=== PATIENT | male | born 1960 | race Caucasian/White ===

== ENCOUNTER 2016-10-07 07:12 | Emergency (ER) | payer BC, OTHER ==
[2016-10-07 07:17] VITALS: RESP 16; TEMP 97.3
[2016-10-07] MEDS ORDERED: NS 1,000 ML IV ONE (07:24)
[2016-10-07] MEDS ORDERED: ONDANSETRON 4 MG/2 ML VIAL IVP ONE (07:24)
--- NOTE | 2016-10-07 07:40 | EDPHY ---
HPI/HX/ROS/PE/MDM Narrative: CHIEF COMPLAINT: "woke up dizzy to the point of nausea" HPI: The patient is a 55 y/o male complaining of dizziness and nausea upon waking this morning in the last couple hours. His dizziness is aggravated by turning his head and alleviated by sitting still and described as "room- spinning." He has vomited bile a few times due to this. He felt normal yesterday. He has not experienced these symptoms previously but does note he's had a previous ear infection as an adult. No history of vertigo. He denies recent trauma or illness, earache, vision changes, headache, weakness, paresthesias, or fever. No pertinent chronic medical history. REVIEW OF SYSTEMS: Aside from elements discussed in the HPI, a comprehensive 10-point review of systems was reviewed and is negative. 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 PHYSICAL EXAM: General:Patient is alert, in no acute distress. ENT:Eyes are normal to inspection. ENT inspection normal. Right TM obscured by cerumen. Left TM normal. Neck: Normal inspection. Full range of motion. Respiratory:No respiratory distress. Breath sounds normal bilaterally. Cardiovascular: Regular rate and rhythm. Strong peripheral pulses. Normal cap refill. Abdomen:The abdomen is nontender to palpation. There are no peritoneal signs. There are normal bowel sounds. Back: Normal to inspection. No tenderness to palpation. Skin: Normal color. No rash. Warm and dry. Extremities: Normal appearance. Full range of motion. Neuro: Oriented x3. Normal motor function. Normal sensory function. No nystagmus. No pronator drift. Normal [id number]. Normal [id number]. ED Course: This is a healthy 55 y/o male who presents with room-spinning dizziness upon waking. He has associated nausea and vomiting, but denies other complaints. His neuro exam is normal and no nystagmus noted. IV established. 4mg IV Zofran and 50mg PO Meclizine administered. Plan to reassess over the next hour. Nausea improved with Zofran and he has not vomited since administration. 0841: Reassessed patient. He states he is about 50% better. Neuro exam remains normal. He feels ready to go home. He will be discharged with scripts for Meclizine and Zofran and referred to PCP and neurologist if needed. Return precautions given. He is comfortable with this plan. MDM: This patient presents with acute vertigo. His cerebellar exam is normal. He states that he has had an ear infection in the past, and his right ear is impacted by cerumen, however, he has no ear pain, loss of hearing, fever to suggest infection, and his symptoms are acute in onset, so I think otitis media is very unlikely. His signs and symptoms seem most consistent with labyrinthitis. I will treat him with meclizine and zofran. He was instructed to return tomorrow if symptoms do not improve. - Data Points Medications Given: Discontinued Medications Sodium Chloride (Ns) 1,000 mls @ 0 mls/hr IV ONCE ONE PRN Reason: Wide Open Stop: 10/07/16 07:25 Last Admin: 10/07/16 07:32 Dose: 1,000 mls Meclizine HCl (Meclizine Hcl) 50 mg PO EDNOW ONE Stop: 10/07/16 07:46 Last Admin: 10/07/16 07:55 Dose: 50 mg Ondansetron HCl (Zofran) 4 mg IVP EDNOW ONE Stop: 10/07/16 07:25 Last Admin: 10/07/16 07:33 Dose: 4 mg General Time Seen by Provider: 10/07/16 07:31 Initial Vital Signs: Initial Vital Signs Temperature (C) 36.3 C 10/07/16 07:15 Heart Rate 52 L 10/07/16 07:15 Respiratory Rate 16 10/07/16 07:15 Blood Pressure 144/82 H 10/07/16 07:15 O2 Sat (%) 97 10/07/16 07:15 O2 Delivery Mode Room Air Allergies/Adverse Reactions: IBUPROFEN Allergy (Uncoded 10/07/16 07:18) Home Medications: Medication Instructions Recorded Meclizine HCl [Meclizine HCl 25 mg 50 mg PO BID PRN #14 tab 10/07/16 (RX,OTC)] Ondansetron Odt [Zofran Odt] 4 mg PO Q4PRN PRN #14 tab 10/07/16 Departure - Departure Disposition: Home, Routine, Self-Care Clinical Impression: Vertigo Condition: Good Instructions: Vertigo (ED), Meclizine (By mouth) Additional Instructions: 1. Take Meclizine as prescribed when needed for vertigo symptoms. 2. Use Zofran as prescribed when needed for nausea and vomiting. 3. Follow up with your primary care provider or neurologist for symptoms not improved over the next 2-3 days. 4. Return to the ED for severe headache, weakness or numbness on one side of your body, or other worsening of condition. Referrals: Gini Chan MD [Medical Doctor] - As per Instructions Prudencio Quan DO [Medical Doctor] - As per Instructions Prescriptions: Meclizine HCl [Meclizine HCl 25 mg (RX,OTC)] 50 mg PO BID PRN #14 tab PRN Reason: vertigo Ondansetron Odt [Zofran Odt] 4 mg PO Q4PRN PRN #14 tab PRN Reason: Nausea Report Scribed for: Jorge Gardner Report Scribed by: Tata Doty Date of Report: 10/07/16 Time of Report: 07:41
[2016-10-07] MEDS ORDERED: MECLIZINE HCL 25 MG TAB PO ONE (07:45)
[2016-10-07 08:41] VITALS: PULSE 56
[2016-10-07 08:54] VITALS: BP 128/72; O2SAT 98
== END 2016-10-07 08:54 | disposition home or self-care (01) ==
DX: R42 Dizziness and giddiness (principal)
CPT/HCPCS: 96374; J2405